=== PATIENT | male | born 1940 | race Two or more races ===

== ENCOUNTER 2021-05-10 15:24 | Emergency (ER) | payer OTHER ==
[~2021-05-10] VITALS: Ht 162.6 cm; Wt 96.2 kg
[2021-05-10] MEDS ORDERED: METOPROLOL SUCC50 MG PO (16:30)
[2021-05-10] MEDS ORDERED: CLONAZEPAM0.5 MG PO (16:30)
[2021-05-10] MEDS ORDERED: AMLODIPINE BESY10 MG PO (16:31)
[2021-05-10] MEDS ORDERED: ATORVASTATIN CA40 MG PO (16:31)
[2021-05-10] MEDS ORDERED: VALSARTAN-HCTZ1 EAC4 PO (16:31)
== END 2021-05-10 18:11 | disposition home or self-care (01) ==
LOC: ER 15:24
DX: G44.89 Other headache syndrome (principal)

== ENCOUNTER 2021-05-26 08:18 | Outpatient (CLI) | payer OTHER ==
[~2021-05-26 08:18] MED LIST: AMLODIPINE BESY10 MG PO; ATORVASTATIN CA40 MG PO; CLONAZEPAM0.5 MG PO; METOPROLOL SUCC50 MG PO; VALSARTAN-HCTZ1 EAC4 PO
== END 2021-05-26 14:15 | disposition home or self-care (01) ==
LOC: RAD 08:18
PROVIDERS: ATTEND Neurological Surgery
DX: M54.5 Low back pain (principal); M54.2 Cervicalgia

== ENCOUNTER 2022-02-19 10:39 | Outpatient (CLI) | payer OTHER | END 2022-02-19 10:44 | disposition home or self-care (01) | LOC: SONOGRAMA 10:39 | PROVIDERS: ATTEND Urology | DX: R31.1 Benign essential microscopic hematuria (principal); R33.9 Retention of urine, unspecified; R30.0 Dysuria ==

== ENCOUNTER → 2024-04-04 14:23 | Outpatient (CLI) | payer OTHER ==
[2024-04-04 16:09] LABS: MYCOPLASMA PNEUMONIAE IGM NON REACTIVE (NO REACTIVE)
== END | disposition home or self-care (01) ==
LOC: LAB 14:23
PROVIDERS: ATTEND Internal Medicine
DX: R50.9 Fever, unspecified (principal)